=== PATIENT | male | born 1955 | race Caucasian/White ===

== ENCOUNTER 2023-04-01 10:17 | Outpatient (CLI) | payer MEDICARE, SELFPAY ==
[2023-04-01 19:29] LABS: Basophils Absolute Auto 0.1 K/mm3 (0.0-0.1); Basophils Percent Auto 0.6 % (0.2-1.2); Eosinophils Absolute Auto 0.1 K/mm3 (0-0.3); Eosinophils Percent Auto 1.4 % (0-4.4); Hematocrit 52.3 % (42.0-52.0); Immature Granulocyte Absolute 0.04 K/mm3 (0.00-0.031); Immature Granulocyte Percent A 0.4 % (0-0.5); Lymphocytes Absolute Auto 2.55 K/mm3 (0.9-3.2); Mean Corpuscular HGB Conc 32.5 g/dl (32-36); Mean Corpuscular Hemoglobin 31.3 pg (26-34); Mean Corpuscular Volume 96.3 fl (80-100); Mean Platelet Volume 11.5 fl (7.4-10.4); Monocytes Absolute Auto 0.6 K/mm3 (0.1-0.6); Monocytes Percent Auto 6.2 % (2.6-8.5); Neutrophils Absolute Auto 6.4 K/mm3 (1.3-6.7); Neutrophils Percent Auto 65.4 % (45.5-73.1); Platelet Count Result 227 k/mm3 (150-375); Red Blood Count 5.43 M/mm3 (4.6-6.20); Red Cell Distribution Width 13.5 % (11.5-14.5); White Blood Count 9.8 K/mm3 (4.5-10.0)
[2023-04-01 23:36] LABS: Alanine Aminotransferase 26 U/L (6-50); Albumin Level 4.5 g/dL (3.5-5.1); Alkaline Phosphatase 61 U/L (38-126); Anion Gap 6 mmol/L (8-16); Aspartate Amino Transferase 30 U/L (17-59); Bilirubin,Total 0.7 mg/dL (0.2-1.3); Blood Urea Nitrogen 13 mg/dL (9-20); Carbon Dioxide 28 mmol/L (22-30); Chloride 101 mmol/L (98-107); Cholesterol 218 mg/dL (0-200); Estimated Glomerular Filt Rate > 60; Glucose 96 mg/dL (65-110); HDL Direct 60 mg/dL; Sodium 135 mmol/L (137-145); Triglycerides 118 mg/dL (<150)
[2023-04-01 23:47] LABS: LDL Cholesterol Direct 130 mg/dL
[2023-04-02 00:07] LABS: Prostate Specific Antigen 0.8 ng/mL (< OR = 4.0)
== END 2023-04-01 10:18 | disposition home or self-care (01) ==
LOC: ANHGOSHLAB 10:19
PROVIDERS: PCP Internal Medicine; Visit Provider Nurse Practitioner
DX: I10 Essential (primary) hypertension (principal); Z12.5 Encounter for screening for malignant neoplasm of prostate
CPT/HCPCS: 36415; 80053; 80061; 84153; 84443; 85025; G0103

== ENCOUNTER → 2023-10-06 13:57 | Outpatient (CLI) | payer MEDICARE, SELFPAY ==
--- NOTE | ~2023-10-06 | XR_ITS ---
EXAM: [id number] DATE: 10/06/2023 14:06 HISTORY: right knee pain behind patella no injury . COMPARISON: None available. FINDINGS: Normal mineralization. No fracture or dislocation. No lytic or blastic lesion. Small volum e joint fluid. Quadriceps enthesopathy. Tricompartmental osteophytosis. No erosion or periosteal polo ge. Atherosclerotic vascular calcifications. Infrapatellar subcutaneous edema. IMPRESSION: No acute osseous finding in the right knee. Infrapatellar subcutaneous edema, correlate for clinical findings of anterior contusion or patellar t endon injury/tendinopathy. Small volume right knee joint effusion. Mild tricompartmental right knee osteoarthritis. Reviewed, dictated and finalized at location [facility] IMPRESSION: No acute osseous finding in the right knee. Infrapatellar subcutaneous edema, correlate for clinical findings of anterior c ontusion or patellar tendon injury/tendinopathy. Small volume right knee joint effusion. Mild tricompartmental right knee osteoarthritis.
== END ==
PROVIDERS: PCP Nurse Practitioner; Visit Provider Nurse Practitioner
DX: M25.561 Pain in right knee (principal); M25.461 Effusion, right knee; M17.11 Unilateral primary osteoarthritis, right knee; R60.9 Edema, unspecified
CPT/HCPCS: 73560

== ENCOUNTER 2023-11-19 10:11 | Outpatient (CLI) | payer MEDICARE, SELFPAY ==
[2023-11-19 19:42] LABS: Alanine Aminotransferase 22 U/L (6-50); Albumin Level 4.4 g/dL (3.5-5.1); Alkaline Phosphatase 61 U/L (38-126); Anion Gap 8 mmol/L (8-16); Aspartate Amino Transferase 25 U/L (17-59); Bilirubin,Total 0.7 mg/dL (0.2-1.3); Blood Urea Nitrogen 11 mg/dL (9-20); Carbon Dioxide 25 mmol/L (22-30); Chloride 103 mmol/L (98-107); Cholesterol 207 mg/dL (0-200); Estimated Glomerular Filt Rate > 60; Glucose 98 mg/dL (65-110); HDL Direct 59 mg/dL; Potassium 4.3 mmol/L (3.4-5.0); Sodium 136 mmol/L (137-145); Triglycerides 111 mg/dL (<150)
[2023-11-19 19:52] LABS: LDL Cholesterol Direct 117 mg/dL
[2023-11-19 19:53] LABS: Free T4 Free Thyroxine 0.81 ng/mL (0.78-2.19)
[2023-11-26 06:37] LABS: Triiodothyronine T3 Free 2.8 pg/mL (2.3-4.2)
== END 2023-11-19 10:12 | disposition home or self-care (01) ==
PROVIDERS: Nurse Practitioner; PCP Internal Medicine; Visit Provider Clinical Nurse Specialist
DX: R79.89 Other specified abnormal findings of blood chemistry (principal); E78.5 Hyperlipidemia, unspecified; I10 Essential (primary) hypertension
CPT/HCPCS: 36415; 80053; 80061; 84439; 84443; 84481

== ENCOUNTER 2024-03-23 10:42 | Outpatient (CLI) | payer MEDICARE, SELFPAY ==
[2024-03-23 19:06] LABS: Anion Gap 7 mmol/L (4-12); Blood Urea Nitrogen 13 mg/dL (9-20); Calcium 9.6 mg/dL (8.4-10.2); Carbon Dioxide 27 mmol/L (22-30); Chloride 102 mmol/L (98-107); Cholesterol 214 mg/dL (0-200); Estimated Glomerular Filt Rate > 60; Glucose 97 mg/dL (65-110); HDL Direct 61 mg/dL; Potassium 4.2 mmol/L (3.4-5.0); Sodium 136 mmol/L (137-145); Triglycerides 119 mg/dL (<150)
[2024-03-23 19:16] LABS: LDL Cholesterol Direct 131 mg/dL
[2024-03-25 07:24] LABS: Triiodothyronine T3 Free 2.9 pg/mL (2.3-4.2)
== END 2024-03-23 10:43 | disposition home or self-care (01) ==
LOC: ANHGOSHLAB 10:44
PROVIDERS: PCP Internal Medicine; Visit Provider Nurse Practitioner
DX: E78.5 Hyperlipidemia, unspecified (principal); I10 Essential (primary) hypertension; R79.89 Other specified abnormal findings of blood chemistry
CPT/HCPCS: 36415; 80048; 80061; 84439; 84443; 84481

== ENCOUNTER 2024-06-23 10:27 | Outpatient (CLI) | payer MEDICARE, SELFPAY ==
[2024-06-23 19:35] LABS: Cholesterol 210 mg/dL (0-200); HDL Direct 60 mg/dL; Triglycerides 128 mg/dL (<150)
[2024-06-23 19:47] LABS: LDL Cholesterol Direct 119 mg/dL
[2024-06-23 19:53] LABS: Free T4 Free Thyroxine 0.92 ng/mL (0.78-2.19)
[2024-06-23 20:07] LABS: Prostate Specific Antigen 0.8 ng/mL (< OR = 4.0)
[2024-06-24 16:03] LABS: Triiodothyronine T3 Free 3.6 pg/mL (2.3-4.2)
[2024-06-25 09:33] LABS: Thyroid Peroxidase Antibodies >900 IU/mL (<9)
== END 2024-06-23 10:28 | disposition home or self-care (01) ==
LOC: ANHGOSHLAB 10:29
PROVIDERS: PCP Internal Medicine; Visit Provider Nurse Practitioner
DX: I10 Essential (primary) hypertension (principal); Z12.5 Encounter for screening for malignant neoplasm of prostate; R79.89 Other specified abnormal findings of blood chemistry
CPT/HCPCS: 36415; 80061; 84153; 84439; 84443; 84481; 86376; G0103

== ENCOUNTER 2025-06-14 10:50 | Outpatient (CLI) | payer MEDICARE, SELFPAY ==
[2025-06-14 15:04] LABS: Cholesterol 206 mg/dL (0-200); HDL Direct 52 mg/dL; Triglycerides 83 mg/dL (<150)
[2025-06-14 15:18] LABS: Free T3 3.92 pg/mL (2.45-5.93); Free T4 Free Thyroxine 0.84 ng/dL (0.78-2.19)
[2025-06-14 15:38] LABS: Thyroid Stimulating Hormone 11.600 uIU/mL (0.465-4.680)
== END 2025-06-14 10:51 | disposition home or self-care (01) ==
LOC: ANHGOSHLAB 10:51
PROVIDERS: PCP Internal Medicine; Visit Provider Nurse Practitioner
DX: E03.9 Hypothyroidism, unspecified (principal); I10 Essential (primary) hypertension; E78.5 Hyperlipidemia, unspecified
CPT/HCPCS: 36415; 80061; 84439; 84443; 84481; 86376